=== PATIENT | male | born 1950 | race Caucasian/White ===

== ENCOUNTER 2023-11-08 07:20 | Observation (INO) ==
--- NOTE | 2023-09-29 13:11 | PAT Medication Instructions ---
Medication Instructions Date of Service September 29, 2023 Home Medications apixaban 5 mg tablet (Eliquis) 5 mg PO BID aspirin 81 mg tablet 81 mg PO DAILYBL atorvastatin 40 mg tablet 40 mg PO HS fluticasone propionate 50 mcg/actuation nasal spray,suspension 2 spray intranasal DAILY PRN prn levothyroxine 125 mcg tablet 125 mcg PO QAM metoprolol tartrate 25 mg tablet 25 mg PO BID multivitamin 1 tab PO QAM valsartan 160 mg-hydrochlorothiazide 12.5 mg tablet 1 tab PO QAM vitamin B complex 1 tab PO QAM ASK your prescriber and surgeon aspirin 81 mg tablet 81 mg PO DAILYBL apixaban 5 mg tablet (Eliquis) 5 mg PO BID (From anesthesia perspective, Apixaban/Eliquis needs to be stopped 72 hours before surgery. Please check if okay with doctor that prescribes this to you) DO NOT take the morning of surgery multivitamin 1 tab PO QAM valsartan 160 mg-hydrochlorothiazide 12.5 mg tablet 1 tab PO QAM vitamin B complex 1 tab PO QAM Take morning of surgery With a small sip of water, OTHERWISE NOTHING TO EAT OR DRINK AFTER MIDNIGHT: fluticasone propionate 50 mcg/actuation nasal spray,suspension 2 spray intranasal DAILY PRN prn (if needed) levothyroxine 125 mcg tablet 125 mcg PO QAM metoprolol tartrate 25 mg tablet 25 mg PO BID Take evening before surgery atorvastatin 40 mg tablet 40 mg PO HS fluticasone propionate 50 mcg/actuation nasal spray,suspension 2 spray intranasal DAILY PRN prn (if needed) metoprolol tartrate 25 mg tablet 25 mg PO BID Other Notes If you have any questions please call us at [phone] or [phone] or [phone] or [phone]
--- NOTE | 2023-10-07 13:15 | Anesthesiology Consultation ---
Date of Service October 07, 2023 Assessment & Plan (1) Encounter for pre-operative examination: - Infectious disease screening: Per assessment on 10/07/23: No known infectious disease contacts or current infectious disease symptoms. No noted recent Covid positive test result. - Outpatient joint assessment: Pt currently scheduled for inpatient pathway. If surgeon requests review for outpatient joint pathway, patient is not recommended candidate for outpatient joint program from anesthesia standpoint based upon available information. - Eliquis instructions: patient made aware that for neuraxial anesthesia, Eliquis needs to be held 72 hours prior to surgery. Patient voiced understanding/will check if okay with prescriber. - Awaiting upcoming Echo (ZACH Mishra, 10/10) + surgeon-ordered cardiology clearance (ANJU, appt 11/01). Chart Review Chart Review: Patient seen in Pre Admission Testing Teaching & Discussion Pre-Anesthesia Teaching/Discussion Notes: Instructed NPO after midnight before surgery,except medications with 15 cc of water. Medication instructions provided according to the PAT guidelines. History Surgery Operation Date: 11/08/23 09:15 Proposed Procedures p Right Total Knee Arthroplasty - Chester Cummings DO Height/Weight Height: 5 ft 10 in Weight: 123.1 kg Allergies Allergy/AdvReac Type Severity Reaction Status Date / Time No Known Allergies Allergy Unverified 09/28/23 15:35 Medications Home Medications Medication Instructions Recorded Confirmed Last Taken apixaban 5 mg tablet (Eliquis) 5 mg PO BID 09/28/23 09/28/23 Unknown aspirin 81 mg tablet 81 mg PO DAILYBL 09/28/23 09/28/23 Unknown atorvastatin 40 mg tablet 40 mg PO HS 09/28/23 09/28/23 Unknown fluticasone propionate 50 2 spray intranasal DAILY PRN prn 09/28/23 09/28/23 Unknown mcg/actuation nasal spray,suspension levothyroxine 125 mcg tablet 125 mcg PO QAM 09/28/23 09/28/23 Unknown metoprolol tartrate 25 mg tablet 25 mg PO BID 09/28/23 09/28/23 Unknown multivitamin 1 tab PO QAM 09/28/23 09/28/23 Unknown valsartan 160 1 tab PO QAM 09/28/23 09/28/23 Unknown mg-hydrochlorothiazide 12.5 mg tablet vitamin B complex 1 tab PO QAM 09/28/23 09/28/23 Unknown Past Medical History Medical History Atrial fibrillation Follows with ANJU/Eda MURRAY Taking Eliquis Echo scheduled 10/11/2023/ZACH Mishra Hyperlipidemia Hypertension Hypothyroidism Obesity Osteoarthritis Exercise / Class Metabolic Activity III < 4 Walking/Shop/Light housework Past Surgical History Surgical History History of cataract surgery bilateral History of cholecystectomy History of tonsillectomy History of umbilical hernia repair Hx of eye surgery left eye artery laser surgery Hx of knee surgery left knee cartilage removed Hx of right inguinal hernia repair Past Anesthesia History No Hx of Anesthesia Complications and No Family Hx of Anesthesia Complications History of PONV No Hx of PONV and No Hx of Motion Sickness Social History Smoking Status: Never smoker Do You Dip or Chew Tobacco: No Hx Alcohol Use: No Hx Substance Use: No substance use type: does not use Review of Systems + Stable KWON. Patient denies chest pain, shortness of breath, fever, chills, cough, wheezing, palpitations. Physical Exam Vital Signs BP 119/76 P 50 TEMP 97.9 SP02 98%RA RESP 18 Physical Full cervical extension range of motion. Full TMJ range of motion. TMD 3.5 finger breaths Mallampati Score 3 Dentition: intact Lungs: clear throughout to auscultation Cardiac: bradycardia, irregular rhythm, no murmurs noted Spine: normal Carotid arteries: negative bruit Extremities: no LE edema Lab Results Anesthesia Preop Results Results Anesthesia Widget: WBC 6.81 K/ul (4.8-10.8) 10/07/23 Hgb 15.0 g/dl (14.0-18.0) 10/07/23 Hct 43.6 % (42.0-52.0) 10/07/23 Plt 173 K/uL (130-400) 10/07/23 Na 140 mmol/L (136-145) 10/07/23 K 4.1 mmol/L (3.5-5.1) 10/07/23 Cl 107 mmol/L (98-107) 10/07/23 CO2 28 mmol/L (21-32) 10/07/23 BUN 14 mg/dl (6-23) 10/07/23 Creat 0.98 mg/dl (0.6-1.4) 10/07/23 Glucose Level 99 mg/dl (70-99(Fasting)) 10/07/23 PT 12.0 Seconds (9.0-12.0) 10/07/23 PTT 29 Seconds (21-31) 10/07/23 INR 1.1 (0.9-1.1) 10/07/23 HA1c 5.3 % (4.5-5.6) 10/07/23 Blood Type O Negative 10/07/23 Antibody Screen NEGATIVE 10/07/23 Testing Electrocardiogram Date: 10/07/23 A. fib with slow ventricular response at 49bpm.
--- NOTE | 2023-10-10 09:15 | History & Physical Report ---
Date of Service October 10, 2023 date of surgery: 11/08/23 Procedure: Right Total Knee Arthroplasty Surgeon: Chester Cummings, Assessment & Plan (1) Arthritis of right knee: Plan: Patient presents for evaluation of chronic right knee pain denies any specific i njuries or trauma. His pain is ongoing for many years now, states he did have a cortisone injection with no improvement. He has tried oral anti-inflammatories and Tylenol as well. 4 view right knee today shows advanced degenerative changes to his right knee greatest medial compartment and patellofemoral joint with joint space narrowing osteophyte formation subchondral sclerosis. We discussed further options at this point he like to proceed with surgical intervention. Plan to be right total knee arthroplasty, [facility] patient- matched total knee. He does take Eliquis for A-fib, would recommend cardiac clearance prior to the surgery. Will plan overnight stay at the hospital with discharge home with home health physical therapy. He otherwise has no other questions or concerns The risks and benefits have been discussed including, but not limited to, risk of infection, nerve injury, stiffness, loss of motion, failure to improve, etc. Reasonable outcomes and options of treatment were discussed. An explanation of appropriate alternatives to the procedure that may be advantageous were discussed and their risks and benefits, as well as the risks and benefits of not proceeding with treatment. I offered to answer any additional inquiries concerning the treatment involved. All the patient's questions were answered. The patient is agreeable, understanding of the treatment plan and alternatives, and wishes to proceed with the treatment plan. History of Present Illness Chief Complaint: Right knee pain Primary Care Provider: DOLORES BROTHERS Hector is a 72-year-old male who presented for preop evaluation prior to [facility] right total knee arthroplasty. He states he has a longstanding history of right knee pain which gradually worsened and is now affecting his daily activities including walking standing using stairs. He has had previous cortisone injection with no relief, he is unable to take anti-inflammatory secondary to Eliquis for A-fib. At this point time is failed conservative measures and wishes to proceed with a right total knee replacement Allergies Allergy/AdvReac Type Severity Reaction Status Date / Time No Known Allergies Allergy Unverified 09/28/23 15:35 Home Medications Medication Instructions Recorded Confirmed Type apixaban 5 mg tablet (Eliquis) 5 mg PO BID 09/28/23 09/28/23 History aspirin 81 mg tablet 81 mg PO DAILYBL 09/28/23 09/28/23 History atorvastatin 40 mg tablet 40 mg PO HS 09/28/23 09/28/23 History fluticasone propionate 50 2 spray intranasal DAILY PRN prn 09/28/23 09/28/23 History mcg/actuation nasal spray,suspension levothyroxine 125 mcg tablet 125 mcg PO QAM 09/28/23 09/28/23 History metoprolol tartrate 25 mg tablet 25 mg PO BID 09/28/23 09/28/23 History multivitamin 1 tab PO QAM 09/28/23 09/28/23 History valsartan 160 1 tab PO QAM 09/28/23 09/28/23 History mg-hydrochlorothiazide 12.5 mg tablet vitamin B complex 1 tab PO QAM 09/28/23 09/28/23 History Past Med/Surg History Medical History Obesity Osteoarthritis Hypothyroidism Atrial fibrillation Follows with ANJU/Eda MURRAY Taking Eliquis Echo scheduled 10/11/2023/[facility] Hyperlipidemia Hypertension Surgical History Hx of knee surgery left knee cartilage removed Hx of right inguinal hernia repair History of umbilical hernia repair History of cholecystectomy History of tonsillectomy Hx of eye surgery left eye artery laser surgery History of cataract surgery bilateral Social History Smoking Status: Never smoker Second Hand Exposure: No; Do You Dip or Chew Tobacco: No; Hx Alcohol Use: No Hx Substance Use: No Preferred Language: Kazakh Flat Finisher Required: No Beliefs That Will Affect Care: None Current Living Situation: Spouse Feels Safe at Home: Yes Assistive Devices: Cane, Glasses and Hearing Aid - Bilateral Review of Systems Review of Systems: All systems reviewed & are unremarkable except as noted in HPI & below Constitutional: no fever, no chills and no sweats Respiratory: no cough and no dyspnea Cardiovascular: no chest pain, no dyspnea and no orthopnea Gastrointestinal: no abdominal pain, no nausea and no vomiting Musculoskeletal: as per Subjective / HPI Physical Exam Physical Exam: HT: 5ft 10in WT: 123.1kg Constitutional: WD/WN, vitals as above no acute distress Respiratory: normal respiratory effort, lungs clear to auscultation no respiratory distress, no labored breathing and does not use accessory muscles Cardiovascular: Rate/Rhythm: + irregularly irregular Gastrointestinal (Abdomen): normal bowel sounds, soft, nontender, no hepatosplenomegaly Musculoskeletal: Knee: + knee abnormal to inspection (RIGHT KNEE: ), + effusion (+1 effusion), + limited ROM of knee (ROM 0/3/110), + knee ROM with crepitation, + joint line tenderness (medial joint line) and + Alejandro's sign positive; no deformity, no skin erythema, no ecchymosis, no valgus laxity, no varus laxity, anterior drawer test negative, Brooklyn's sign negative and pivot shift test negative Results & Data Results & Data Diagnostic Findings Right Knee X-ray: Right knee series showing advanced degenerative changes to the right knee, narrowing of the medial compartment and patello-femoral joint with patellar spurring noted, findings showing joint space narrowing of the medial compartment and patello-femoral joint, osteophyte formation and subchondral sclerosis noted. overall varus alignment. no acute bony pathology noted.
[~2023-11-08 07:20] MED LIST: BUPIVACAINE 0.25% PF 30 ML VIAL ONE; BUPIVACAINE 0.5 % 5 MG/1 ML PF 10ML VIAL ONE; DEXAMETHASONE SOD INJ 4 MG/ML VIAL ONE; EPINEPHrine INJ 1 MG/ML AMP ONE
--- NOTE | 2023-11-08 08:15 | History & Physical Bridge Note ---
Date of Service November 08, 2023 History & Physical Bridge Note I have examined the patient, reviewed the History & Physical and in the interval since the performance of the History & Physical I have noted the following changes of clinical significance: no changes noted
[2023-11-08] MEDS ORDERED: MIDAZOLAM HCL 1 MG/ML 2ML VIAL ONE (08:18)
[2023-11-08] MEDS ORDERED: fentaNYL citrate PF 100 MCG/2 ML VIAL ONE (08:18)
[2023-11-08] MEDS: GABAPENTIN 300 MG CAP PO SCH (08:29)
[2023-11-08] MEDS: ACETAMINOPHEN 500 MG TAB PO SCH ×2 (08:29→14:13)
[2023-11-08] MEDS: METOCLOPRAMIDE HCL 10 MG TABLET PO SCH (08:30)
[2023-11-08] MEDS: CeleBREX 200 MG CAP PO SCH (08:30)
[2023-11-08] MEDS: FAMOTIDINE 20 MG TAB PO SCH (08:30)
[2023-11-08] MEDS: dexAMETHasone 4 MG TAB PO SCH (08:30)
[2023-11-08] MEDS: LR 500ML BOLUS, THEN 15ML/HR IV SCH (08:30)
[2023-11-08] MEDS: oxyCODONE HCL 10 MG TABCR (OxyCONTIN) PO SCH (08:30)
[2023-11-08] MEDS ORDERED: ONDANSETRON INJ 2 MG/ML 2 ML VIAL ONE ×2 (08:31→10:54)
[2023-11-08] MEDS: LR 60ML/HR IV SCH (08:31)
[2023-11-08] MEDS: TRANEXAMIC ACID / 0.7% NACL 1000MG/100ML BAG IV ONE (08:33)
[2023-11-08] MEDS: TRANEXAMIC ACID / 0.7% NACL 1,000 MG/100 ML BAG IV ONE ×2 (09:25→13:10)
[2023-11-08] MEDS ORDERED: ONDANSETRON INJ 2 MG/ML 2 ML VIAL IV PRN ×2 (09:32→13:01)
[2023-11-08] MEDS ORDERED: fentaNYL citrate PF 100 MCG/2 ML VIAL IV PRN (09:32)
[2023-11-08] MEDS ORDERED: ePHEDrine sulfate 50 MG/ML AMP IV PRN (09:32)
[2023-11-08] MEDS ORDERED: ATROPINE SULFATE 0.1 MG/ML 10ML SYR IV PRN (09:32)
[2023-11-08] MEDS: ROPIV 0.5% 246mg, Ketorolac 30mg, EPINEPHrine 0.5mg in NSS INFIL SCH (10:22)
--- NOTE | 2023-11-08 10:46 | Operative Report ---
Post Operative Report Pre & Post Diagnosis Operation Date: 11/08/23 09:00 Pre-Op Diagnosis: Right Knee Osteoarthritis Post-Op Diagnosis: Right Knee Osteoarthritis I identified the patient and participated in the time-out.: Yes Procedure Operation Date: 11/08/23 09:00 Actual Procedures p Right Total Knee Arthroplasty(Right) Utilizing [facility] [place] patient-matched total knee arthroplasty sees size femur 6 right tibia 5 right poly 13 patella 32 syed- Chester Cummings DO Surgeon Chester Cummings DO Motion Picture Set Grip Rich TODD Estimated Blood Loss 5 Findings Consistent with Post-Op Diagnosis Patient presents with severe end-stage DJD of the right knee nonresponse to conservative management patient is eburnated [id number] marginal osteophytes subchondral sclerosis subchondral cystic changes with a large effusion Specimens Bone and cartilage Drains Medium bore Hemovac Anesthesia Type MAC Spinal Regional Complications none Disposition Accompanied Patient To Recovery: No Disposition: Recovery Room Indications Patient presents with severe end-stage DJD of the right knee nonresponse to conservative management occluding physical therapy anti-inflammatories relative rest activity modification corticosteroid injection viscosupplementation the above intraoperative findings were noted Description of Procedure After proper prepping and draping of the Right lower extremity anterior midline incision was made over the region of the extensor extensor mechanism after meticulous hemostasis was obtained and maintained in subcutaneous tissues a medial parapatellar incision was made The patella was subluxed lateralward the medial lateral gutter were cleaned from any hypertrophic synovitis and scar tissue of the distal femoral block was placed and the distal femoral osteotomy cut was made subsequently the chamfers anterior and posterior osteotomy cuts were made utilizing the 4-in-1 block the tibia was subsequently subluxed anteriorward medial and ateral meniscal remnants were excised in their entirety remnants of the anterior and posterior cruciate ligaments were excised in their entirety excellent exposure of the proximal tibia was obtained the tibial osteotomy guide was placed on the proximal tibial osteotomy cut was made once again the knee was irrigated with copious amounts of sterile saline solution the patella was subsequently everted lateralward thickened scar tissue around the patella was removed the patella was subsequently cut utilizing a freehand tech nique and was drilled prepared for final preparation and placement of patella socially flexion-extension gaps were checked and the equal and symmetric trials were placed to the appropriate femoral and tibial trials with poly-spacer being placed for equal flexion and extension gaps and full range of motion including extension to 0 and flexion to 140 the trial components after having been taken to recovery range of motion was subsequently removed meticulous hemostasis was obtained and maintained subsequently a knee block injection of joint cocktail including ropivacaine 0.5% 150 mg. Bupivacaine 0.5% epinephrine 1-200,030 mL's toradol 30 mg dexamethasone 4 mg ketamine 10 mg clonidine 100 micrograms normal saline solution 30 mg was infiltrated into the soft tissues of the posterior knee medial lateral gutters and periosteal synovium special attention was paid to protect neurovascular structures at all times subsequently trial components having been removed the knee was irrigated with sterile saline solution. debris was removed the proximal tibia was subsequently prepared and was made ready for the placement of the tibial component tibial component was also cemented and tamped into position the femoral component was subsequently placed and cemented in the position the patellar component was subsequently cemented in position because hemostasis once again obtained and maintained wound having been thoroughly irrigated with debridement and debridement lavage was performed as well as a medial parapatellar incision closed with #1 Vicryl in interrupted fashion subcutaneous was closed with #2 Vicryl skin was closed with skin clips. PA-C was necessary for prepping and drapping as well as wound closure of deep fascia Sub cutaneous tissue and skin and was necessary for the case. A sterile compressive dressing was placed patient was taken to recovery in stable condition of report dictated by Emiliano I attest to the content of the Intraoperative Record and any orders documented t herein. Any exceptions are noted below.Due to the complex nature of the procedure, the entire surgery was performed with the operational assistance ofPEYTON Wong. The orthodontist assistant, under direct supervision, was involved in the actual performance of all aspects of the surgical procedure including hemostasis, tissue retraction and incision, instrument management, patient positioning, and wound closure. I attest to the content of the Intraoperative Record and any orders documented therein. Any exceptions are noted below.
[2023-11-08] MEDS ORDERED: PHENYLEPHRINE 100MCG/ML 10ML SYR IV ONE (10:56)
[2023-11-08] MEDS: PROMETHAZINE HCL INJ 25 MG/ML 1 ML VIAL ONE (11:59)
[2023-11-08] MEDS: PROMETHAZINE HCL 6.25 MG in SODIUM CHLORIDE 0.9% 50 ML IV STA (11:59)
[2023-11-08] MEDS ORDERED: FLUTICASONE PROPIONATE NA SPR 16 GM BTL NAE PRN (13:01)
[2023-11-08] MEDS ORDERED: MAGNESIUM HYDROXIDE SUSP 30 ML UDC PO PRN (13:01)
[2023-11-08] MEDS ORDERED: NALOXONE HCL 0.4 MG/1 ML VIAL/CARP IV PRN (13:01)
[2023-11-08] MEDS ORDERED: HYDROmorphone INJ 1 MG/ML SYRINGE IV PRN (13:01)
[2023-11-08] MEDS ORDERED: METOCLOPRAMIDE HCL INJ 5 MG/ML 2 ML VIAL IV PRN (13:01)
[2023-11-08] MEDS ORDERED: bisacodyL 10 MG SUPP PR PRN (13:01)
[2023-11-08] MEDS ORDERED: diphenhydrAMINE Capsule 25 MG CAP PO PRN (13:01)
[2023-11-08] MEDS ORDERED: oxyCODONE HCL IR 5 MG TAB (IMMEDIATE RELEASE) PO PRN (13:01)
[2023-11-08] MEDS: ORTHO JOINT ANESTHETIC ONE (13:05)
[2023-11-08] MEDS: ceFAZolin 3000MG 3,000 MG/72.5 ML BAG IV SCH (13:10)
--- NOTE | 2023-11-08 13:10 | XRay Report ---
XR knee RT 1 or 2V routine HISTORY: 73 years-old Male Surgical Post Op right knee arthroplasty COMPARISON: None TECHNIQUE: 2 views of the right knee FINDINGS: Total joint arthroplasty with patellar resurfacing. Expected postoperative soft tissue swelling with deep tissue air and surgical drainage catheter. No acute fracture or unexpected opaque foreign body. IMPRESSION: Total joint arthroplasty with expected postoperative changes. ACT 112: Negative or not required by law. The above report was generated using voice recognition software. It may contain grammatical, syntax o r spelling errors. Electronically signed by: James Li M.D. 11/08/2023 1:09 PM
[2023-11-08] MEDS: SODIUM CHLORIDE 0.9% 1,000 ML IV SCH (13:12)
--- NOTE | 2023-11-08 14:55 | Hospitalist Consultation ---
Date of Consultation November 08, 2023 Assessment & Plan (1) S/P right knee surgery: Right TKA with Dr. Cummings on 11/07 Perioperative antibiotics, pain management, fluid replacement, and DVT PPx per the primary team Postop right knee x-ray revealed expected postoperative changes PT/OT consulted Agree with a.m. CBC, BMP, we will follow (2) Bradycardia: This is his normal. HR in 40s in setting of sheri collins on metoprolol in cardiology office and they wish to continue his metoprolol perioperatively despite his low HR Continue metoprolol, will reduce parameters to hold if HR less than 45 bpm, or SBP less than 90 (3) Atrial fibrillation: Restart Eliquir when ok from surgical perspective Continue metoprolol as above with hold parameters (4) Hypothyroidism: Continue levothyroxine (5) Hypertension: Will hold valsartan/HCTZ POD#1 pending serial BP measurements, restart as BP allows (6) Hyperlipidemia: Continue atorvastatin (7) Arthritis of right knee: Plan Agree with medical decision making: Disposition: MedSurg Regular diet VTE PPx: Teds/SCDs Thank you for allowing us to participate in the care of this patient; please reach out with any questions or concerns. We will continue to follow. Supervising Physician Co-Signing Physician Notes I personally saw and examined the patient. I independently reviewed the labs, EKG, imaging, problem list, medication list, past medical history and family history. I verified all longoria points and agree with Houston Hutchinson PA-C with the following exceptions and/or additions: 73 year old POD#0 right TKA, EBL 5ml. No current concerns or questions from the patient O/E HS irregular rhythm, decreased rate, no murmurs, Chest CTAB, Abdo SNT A/P VTE / Pain / bowel management by primary orthopedic team Sheri collins with slow ventricular response - appears to be his normal and known to his instructional materials director. He does describe poor exercise tolerance and he doesn't clearly need the metoprolol but since his instructional materials director wants this continued and is aware of the low HR will adjust hold parameters HTN - hold antihypertensives other than metoprolol pending serial BP overnight, restart as able per BP History of Present Illness Reason for Consultation: Medical management Requesting Physician: Chester Cummings DO Attending Physician: Chester J Cummings, DO History of Present Illness Hector is a 73-year-old male with PMH of HTN, hypothyroidism, HLD, and atrial fibrillation (on apixaban). He presented for a right total knee arthroplasty on 11/[address] Chester Cummings. Per review of operative report, EBL was listed as 5 cc, MAC spinal regional anesthesia was used, and there were no reported intraoperative complications. Per review of patient vitals, he has been bradycardic in the 39-50 bpm range; vitals otherwise stable. At time of consult, patient endorses 6/10 dull aching pain in his right knee. H e reports that the pain comes and goes intermittently, but reports no stabbing or burning pain. No radiation down into the foot, or up the leg towards the back. No numbness or tingling. Patient has no new complaints at this time. He notes that he did have 1 episode of nausea and vomiting in the PACU, but this nausea has resolved. He has been eating and drinking okay since the procedure (tolerating water, and had mac & cheese and a fruit bowl for lunch). He has not tried to get up to go to the bathroom yet. Patient's is at the bedside, and reports that he is usually bradycardic. Patient took metoprolol, levothyroxine, and his aspirin this morning; no other medications. He denies any recent change in medications. ROS: Patient endorses dull right knee pain, nausea, and 1 episode of vomiting. Patient denies fever, chills, sweating, lightheadedness, chest pain, chest palpitations, pleuritic CP, SOB, abdominal pain, changes in urinary or bowel habits, or numbness/tingling in the lower extremities bilaterally. Allergies Allergy/AdvReac Type Severity Reaction Status Date / Time No Known Allergies Allergy Verified 11/08/23 07:59 Home Medications Medication Instructions Recorded Confirmed Type apixaban 5 mg tablet (Eliquis) 5 mg PO BID 09/28/23 11/08/23 History aspirin 81 mg tablet 81 mg PO DAILYBL 09/28/23 11/08/23 History atorvastatin 40 mg tablet 40 mg PO HS 09/28/23 11/08/23 History fluticasone propionate 50 2 spray intranasal DAILY PRN prn 09/28/23 11/08/23 History mcg/actuation nasal spray,suspension levothyroxine 125 mcg tablet 125 mcg PO QAM 09/28/23 11/08/23 History metoprolol tartrate 25 mg tablet 25 mg PO BID 09/28/23 11/08/23 History multivitamin 1 tab PO QAM 09/28/23 11/08/23 History valsartan 160 1 tab PO QAM 09/28/23 11/08/23 History mg-hydrochlorothiazide 12.5 mg tablet vitamin B complex 1 tab PO QAM 09/28/23 11/08/23 History acetaminophen 500 mg tablet 1,000 mg (2 x 500 mg) PO Q8 pain 11/08/23 Rx 21 days #126 tabs cefadroxil 500 mg capsule 500 mg PO BID 14 days #28 caps 11/08/23 Rx docusate sodium 100 mg capsule 100 mg PO BID #20 caps 11/08/23 Rx oxycodone 5 mg tablet 5 - 10 mg (1 - 2 x 5 mg) PO Q6H 11/08/23 Rx PRN pain #30 tabs Patient History Medical History (Updated 11/08/23 @ 14:53 by Houston Hutchinson PA-C) Obesity Osteoarthritis Hypothyroidism Atrial fibrillation Follows with ANJU/Eda MURRAY Taking Eliquis Echo scheduled 10/11/2023/[facility] Hyperlipidemia Hypertension Surgical History (Updated 11/08/23 @ 19:59 by Rich Gary PA-C) Hx of knee surgery left knee cartilage removed Hx of right inguinal hernia repair History of umbilical hernia repair History of cholecystectomy History of tonsillectomy Hx of eye surgery left eye artery laser surgery History of cataract surgery bilateral Social History Smoking Status: Never smoker Second Hand Exposure: No; Do You Dip or Chew Tobacco: No; Tobacco Cessation Education Requested by Patient: No Hx Alcohol Use: No Hx Substance Use: No Preferred Language: [place]an Communication Ability: Effective Water Softener Installer Required: No Beliefs That Will Affect Care: None Current Living Situation: Spouse Other Information That Helps Us Care for You: No Feels Safe at Home: Yes Safety Concerns: Feels Safe At This Time Assistive Devices: Cane and Walker Review of Systems Review of Systems: See HPI above Physical Exam Physical Exam: General: no acute distress; pleasant affect; non-toxic appearing; well- nourished; cooperative; 97% SpO2 on RA HEENT: normocephalic, atraumatic; no scleral icterus; PERRLA; moist mucus membrane; vision intact; hard of hearing Neck: supple; no lymphadenopathy; trachea midline Skin: warm, dry without signs of tenting; no cyanosis; no rashes, bruising, lesions, or erythema noted CV: chest wall NTP; RR, around 50 bpm; S1/S2 normal; no murmurs/rubs/gallops; pulses intact and symmetric at radial, DP, and PT Lungs: no acute respiratory distress; symmetrical chest wall expansion; clear breath sounds across all lung beebe w/o adventitious sounds; no wheezing ABD: Soft, NTP; BS present; no rebound/guarding; moderate distention secondary to body habitus MSK: no tics or fasciculations; no edema noted in the LEs b/l, nonerythematous (SCDs/teds in place); patient demonstrates ability to wiggle toes bilaterally; patient is able to lift right leg off the bed without pain; drain in place Neuro: A&Ox3; normal mood and affect; slightly lethargic/dazed; fluent speech; patient endorses intact, symmetric sensation in the lower extremities bi laterally assessed via light touch at the toes Results & Data Results & Data Vital Signs (Past 12 Hours) Vital Signs Temp Pulse Pulse Resp BP Pulse Ox O2 Del Method 11/08/23 14:04 36.4 C L 47 L 17 110/70 98 Room Air 11/08/23 13:30 49 L 16 111/71 98 Room Air 11/08/23 13:00 36.4 C L 40 L 17 123/63 96 Room Air 11/08/23 12:40 40 L 16 110/54 L 97 Room Air 11/08/23 12:30 36.2 C L 39 L 16 105/61 97 Room Air 11/08/23 12:20 39 L 12 110/65 98 Room Air 11/08/23 12:10 45 L 15 102/84 96 Room Air 11/08/23 12:00 40 L 15 110/62 96 Room Air 11/08/23 11:50 45 L 18 109/59 L 96 Room Air 11/08/23 11:40 49 L 12 98/65 L 97 Room Air 11/08/23 11:30 42 L 16 88/59 L 95 Room Air 11/08/23 11:20 40 L 16 92/63 L 94 Room Air 11/08/23 11:12 36.0 C L 44 L 16 97/54 L 94 Room Air 11/08/23 08:00 36.7 C 48 L 20 120/80 99 Room Air Diagnostic Findings Knee X-Ray 11/08/23 11:15 XR knee RT 1 or 2V routine HISTORY: 73 years-old Male Surgical Post Op right knee arthroplasty COMPARISON: None TECHNIQUE: 2 views of the right knee FINDINGS: Total joint arthroplasty with patellar resurfacing. Expected postoperative soft tissue swelling with deep tissue air and surgical drainage catheter. No acute fracture or unexpected opaque foreign body. IMPRESSION: Total joint arthroplasty with expected postoperative changes. ACT 112: Negative or not required by law. The above report was generated using voice recognition software. It may contain grammatical, syntax or spelling errors. Electronically signed by: James Li M.D. 11/08/2023 1:09 PM PG Care Time/CCT Total # of Minutes Spent Total Time Spent with Patient: Total time spent is greater than 50% in coordination of care (as documented) at patient's floor/unit and/or counseling patient: [place] [address] IN/OBS CONSULT LVL 4,60M Patient Type New Medical Decision Making Low Complexity Diagnoses S/P right knee surgery Z98.890 Bradycardia R00.1 Atrial fibrillation I48.91 Hypothyroidism E03.9 Hypertension I10 Hyperlipidemia E78.5 Arthritis of right knee M17.11
[2023-11-08] MEDS: ceFAZolin 2000MG 2,000 MG/15 ML SYR IV SCH (17:11)
[2023-11-08] MEDS: DOCUSATE SODIUM 100 MG CAP PO SCH (19:41)
[2023-11-08] MEDS: SENNA 8.6 MG TAB PO SCH (19:41)
[2023-11-08] MEDS: METOPROLOL TARTRATE 25 MG TAB PO SCH (19:42)
[2023-11-08] MEDS: ATORVASTATIN 40 MG TAB PO SCH (19:42)
[2023-11-09] MEDS: LEVOTHYROXINE SODIUM 125 MCG TABLET PO SCH (05:29)
--- NOTE | 2023-11-09 07:09 | Orthopedic Progress Note ---
Date of Service November 09, 2023 Assessment & Plan (1) History of total right knee replacement: Plan: POD #1 s/p Right TKA pt/ot dvt proph with DEANGELO/SCD/resume Eliquis patient with episodes of bradycardia, Med consult placed. recommend hold on valsartan/HCTZ, Continue metoprolol, with parameters to hold if HR less than 45 bpm, or SBP less than 90 plan for d/c home with HHPT when stable. will wait until after med recommendations Admission and Anticipated Discharge Date Admission Date: November 08, 2023 Subjective POD #1 s/p Right TKA Review of Systems Constitutional: no fever, no chills and no sweats Respiratory: no cough and no dyspnea Cardiovascular: no chest pain and no dyspnea Gastrointestinal: no abdominal pain, no nausea and no vomiting Physical Exam Physical Exam: Vital Signs Temp 36.6 C 11/09/23 06:56 Pulse 50 L 11/09/23 06:56 Resp 16 11/09/23 06:56 BP 120/74 11/09/23 06:56 Pulse Ox 98 11/09/23 06:56 O2 Del Method Room Air 11/09/23 06:56 Intake & Output 11/08/23 11/09/23 11/09/23 18:59 06:59 18:59 Intake Total 2950.25 / 3950.25 1000 / 3950.25 Output Total 80 / 1350 1270 / 1350 Balance 2870.25 / 2600.25 -270 / 2600.25 Weight 123.6 kg Intake: IV 150.25 / 1150.25 1000 / 1150.25 Lactated Ringe r's 1,000 ml @ 15 0 / 0 mls/hr IV .Q24 H VIC Rx#: [id number] Promethazine H Cl 6.25 mg In 50.25 / 50.25 Sodium Chlorid e 0.9% 50 ml @ 201 mls/hr IV NOW STA Rx#: [id number] Sodium Chlorid e 0.9% 1,000 ml @ 1000 / 1000 100 mls/hr IV .Q10H VIC Rx#: [id number] Tranexamic Aci d / 0.7% NaCl 1, 100 / 100 000 mg In 100 ml @ 600 mls/hr IV PREOP@0825 ONE Rx#:[id number] IV Perioperative 2600 / 2600 Oral 200 / 200 Output: Urine 1100 / 1100 Estimated Blood Loss Drain Output 70 / 240 170 / 240 Right Knee Hem ovac #1 70 / 240 170 / 240 Other: Weight Measureme nt Method Standing Scale Musculoskeletal: Right Leg: NVDI, calf SNT, negative rome sign. DP palpable, able to wiggle toes/ankle movement without difficulty. dressing clean dry and intact. Results & Data Vital Signs (Past 12 Hours) Vital Signs Temp Pulse Resp BP Pulse Ox O2 Del Method 11/09/23 06:56 36.6 C 50 L 16 120/74 98 Room Air 11/09/23 03:02 36.7 C 47 L 18 102/60 98 Room Air 11/08/23 22:42 36.4 C L 44 L 14 127/69 98 Room Air 11/08/23 19:31 36.6 C 44 L 18 109/64 96 Room Air
[2023-11-09 08:20] LABS: Hematocrit (blood only) 35.6 % (42.0-52.0); Hemoglobin 12.6 g/dl (14.0-18.0); Mean Corpuscular Hemoglobin 32.1 pg (25.0-34.0); Mean Corpuscular Hgb Conc 35.4 g/dL (32.0-36.0); Mean Corpuscular Volume 90.8 fL (80.0-100.0); Mean Platelet Volume 10.1 fL (9.4-12.4); Platelet Count 160 K/uL (130-400); RDW Coefficient of Variation 12.9 % (11.5-14.5); RDW Standard Deviation 42.3 fL (36.4-46.3); Red Blood Count 3.92 M/uL (4.70-6.10); White Blood Count 15.87 K/ul (4.8-10.8)
[2023-11-09] MEDS: VITAMIN B COMPLEX TAB PO SCH (08:37)
[2023-11-09] MEDS: MULTIVITAMIN TAB PO SCH (08:37)
[2023-11-09] MEDS: ASPIRIN 81 MG ECTAB PO SCH (08:37)
[2023-11-09] MEDS: APIXABAN 5 MG TABLET PO SCH (08:38)
[2023-11-09 08:43] LABS: BUN Creatinine Ratio 20.6 (10-20); Calcium 9.1 mg/dl (8.6-10.3); Creatinine Clr Calc Pharmacy 81.1 ml/min; Est GFR (African American) 79.4 ml/min; Est GFR (Non-African American) 68.5 ml/min; Potassium 4.2 mmol/L (3.5-5.1)
[2023-11-09] MEDS ORDERED: VALSARTAN/HCTZ 160/12.5MG TAB PO SCH (09:00)
--- NOTE | 2023-11-09 10:21 | Hospitalist Progress Note ---
Date of Service November 09, 2023 Assessment & Plan (1) S/P right knee surgery: Plan: Right TKA with Dr. Cummings on 11/07 Perioperative antibiotics, pain management, fluid replacement, and DVT PPx per the primary team PT/OT consulted - home with home health PT hgb 12.6, preoperatively 15.0 - suspect acute blood loss anemia vs dilutional (2) Bradycardia: Plan: This is his normal. HR in 40s in setting of a. fib on metoprolol in cardiology office for preoperative clearance. Discussion with and patient at bedside. The metoprolol was started by his PCP for high blood pressure and not for his afib. Given his baseline low, he is low risk for afib with RVR, but high risk for orthostatic HTN, syncope. Discussed with patient and - and they do not have a pulse ox at home. Given his current state of recovery and decreased activity, will hold metoprolol until follow up with PCP next week. Defer to them whether a dose reduction would be appropiate if wanting to use for afib or a different medication can be used for hypertension. (3) Atrial fibrillation: Plan: Restart Eliquis when ok from surgical perspective hold metoprolol as above (4) Hypothyroidism: Plan: Continue levothyroxine (5) Hypertension: Plan: Resume valsartan/HCTZ 11/09 (6) Hyperlipidemia: Plan: Continue atorvastatin (7) Arthritis of right knee: Plan Disposition: medically stable, will need PCP follow up next week. Thank you for allowing us to participate in the care of this patient; please reach out with any questions or concerns. We will continue to follow. Admission and Anticipated Discharge Date Admission Date: November 08, 2023 Subjective Patient seen sitting up in the chair, present at bedside. Overall feeling well from the knee replacement perspective, has some tightness in the thigh muscles, that improves with stretching. Ate breakfast, has had a bowel movement. Reports his normal HR is low 50s, sometimes gets up to the 60s. States that his PCP prescribed the metoprolol for high BP, not the molder bench. He has never felt light headeded or dizzy. Does not feel this way when he was just working with therapy. Review of Systems Review of Systems: All systems reviewed & are unremarkable except as noted in Subjective Physical Exam Physical Exam: General: sitting up in the chair, appears well NAD, VS as above Resp: normal respiratory effort, lungs clear to auscultation CV: bradycardic and irregular, no murmur, Abd: normal bowel sounds, non tender, no hepatosplenomegaly Extremities: simba bandage over right knee Neuro: A&O x3, Results & Data Results & Data Vital Signs (Past 12 Hours) Vital Signs Temp Pulse Resp BP Pulse Ox O2 Del Method 11/09/23 08:00 Room Air 11/09/23 06:56 36.6 C 50 L 16 120/74 98 Room Air 11/09/23 03:02 36.7 C 47 L 18 102/60 98 Room Air 11/08/23 22:42 36.4 C L 44 L 14 127/69 98 Room Air Laboratory Results CBC and chemistry reviewed PG Care Time/CCT Total # of Minutes Spent Total Time Spent with Patient: Total time spent is greater than 50% in coordination of care (as documented) at patient's floor/unit and/or counseling patient: Coding Level of Care Code 72745 SUB INP/OBS CARE 2/35MIN Diagnoses S/P right knee surgery Z98.890 Bradycardia R00.1 Atrial fibrillation I48.91 Hypothyroidism E03.9 Hypertension I10 Hyperlipidemia E78.5 Arthritis of right knee M17.11
--- NOTE | 2023-11-09 13:34 | Discharge Summary ---
Date of Service date of discharge: November 09, 2023 date of admission 11/08/23 Admission HPI Per Admitting Provider Hector is a 72-year-old male who presented for preop evaluation prior to upcoming right total knee arthroplasty. He states he has a longstanding history of right knee pain which gradually worsened and is now affecting his daily activities including walking standing using stairs. He has had previous cortisone injection with no relief, he is unable to take anti-inflammatory secondary to Eliquis for A-fib. At this point time is failed conservative measures and wishes to proceed with a right total knee replacement Principal Diagnosis right knee arthritis Discharge Exam Musculoskeletal right knee: NVDI, calf SNT, negative rome sign. DP palpable, able to wiggle toes/ankle movement without difficulty. JANELLE dressing clean dry and intact. expected post-operative bruising noted. Discharge Data Allergies Allergy/AdvReac Type Severity Reaction Status Date / Time No Known Allergies Allergy Verified 11/08/23 07:59 Consultations 11/08/23 12:55 Consult Hospitalist Routine Procedures Performed Operation Date: 11/08/23 09:00 Actual Procedures p Right Total Knee Arthroplasty(Right) - Chester Aranda DO Ordered Studies 11/08/23 05:00 US - OR guided needle placemen Routine Hospital Course (1) History of total right knee replacement: POD #1 s/p Right TKA pt/ot dvt proph with DEANGELO/SCD/resume Eliquis patient with episodes of bradycardia, Med consult placed. recommend hold on valsartan/HCTZ, Continue metoprolol, with parameters to hold if HR less than 45 bpm, or SBP less than 90 plan for d/c home with HHPT when stable. will wait until after med recommendations Total Time Total Time Spent Total Time Spent (In Minutes): 20 Discharge Plan Discharge Items Patient Disposition: Home - Home Health Services Reason For Visit: Right Knee Osteoarthritis Discharge Diagnosis: right total knee replacement Activity: Per Instructions section Weightbearing Comment: WBAT with walker Non-emergency contact: Surgeon Call non-emergency contact if: you have any medication questions, your temperature is above 101, your wound has increased redness, your wound has increased drainage and your wound pain has increased Follow-up/Referrals: Chester Delvalle, D.O. [Primary Care Provider] - (Schedule appointment within one week to discuss Blood pressure medications ) PCP,NO [Physician] - Diet: Regular Addtl Attending Provider Instructions: ACTIVITY RECOMMENDATIONS: SELF CARE INSTRUCTIONS AFTER TOTAL KNEE REPLACEMENT A. You may need to continue a physical therapy program after discharge from the hospital. There are several options available to you. Your doctor will assist you in selecting the best one for you. 1. An out-patient facility 2 to 3 times a week for therapy or home therapy. 2. Continue working on all exercises taught to you in the hospital. Your goals should be to increase bending of your knee to 90 degrees and beyond and to fully straighten your knee. B. You may progress at your own pace from walking with a walker or crutches to a cane; then to no assistive devices. C. Make walking a part of your daily routine. Be up as much as comfortable with rest periods throughout the day. Rest with leg elevation is very important. Use the ice wrap frequently for the first 3-4 weeks. D. There are no restrictions on activities. You may ride in a car, shop, par ticipate in drug safety assistant and all social activities. E. Wear the long elastic stockings (DEANGELO hose) 20 hours a day for 2 weeks after surgery. They can be removed several times a day for laundering and for a bath. F. You may shower, no tub baths until cleared by your doctor. SPECIAL CARE INSTRUCTIONS: VERY IMPORTANT TO READ AND REVIEW A. There are a few signs you need to watch for after you are home. Call [facility] if you notice any of the followin. Increased severe knee pain. Some pain is expected especially when you exercise. 2. Increased swelling in your leg or knee; pain or swelling of the calf muscle in either lower leg. 3. Any fluid drainage from the incision. 4. Shortness of breath or chest pain. B. Please call [facility] at if you have any concerns or questions about your operation or recovery. The doctor or his nurse will return your call promptly. C. You must take antibiotics before dental work, bladder, bowel or other surgery. Your doctor will provide you with a permanent care to carry describing this precaution. IMPORTANT: * REMEMBER TO TAKE ASPIRIN, 81 MG, TWICE DAILY FOR 4 WEEKS UNLESS OTHERWISE DIRECTED. THIS IS YOUR BLOOD THINNER. * HIGH RISK PATIENTS MAY BE PRESCRIBED A STRONGER BLOOD THINNER. THIS WILL BE PROVIDED AT DISCHARGE. * CALL IF INCREASED PAIN, REDNESS, DRAINAGE OR FEVER GREATER THAT 101. * WEAR DEANGELO HOSE 20 HOURS PER DAY FOR 2 WEEKS. DRESSING INSTRUCTIONS * JANELLE Dressing- This is a large suction dressing covering your incision. This will help pull any excess drainage from the wound and allow your incision to heal properly. You may shower with this if you can keep the unit outside of the shower. If any bleeding or leakage is noted please call your doctor's office. This will remain on your incision for 7 days and then should be removed. This can be done yourself or by the home nursing staff if applicable. The entire unit is disposable once removed. Once removed, keep incision clean and dry. If redness or drainage is noted, please call your surgeon. ONCE JANELLE IS REMOVED, FOLLOW THESE INSTRUCTIONS: DERMABOND Prineo- This is a mesh tape dressing that is covered with glue. It should remain in place until the incision is properly healed, usually 10-14 days. This dressing is designed to naturally slough off. You may trim the excess mesh tape as it peels off. Incision may be briefly wet in a shower. Dry immediately by blotting with a clean, dry towel. Do not bath or swim until instructed by your doctor. Do not scratch, rub, or pick at the dressing. Do not apply any topical ointments or lotions until dressing is completely removed and/or instructed by your doctor. There may be a small piece of suture material at one end of your incision. Do not pull or trim this. If it is bothersome or catching on clothing, you may cover it with a band-aid. IF INCISION IS LEAKING THROUGH DRESSING, CALL THE OFFICE . FOLLOW UP VISIT: If appointment is not already scheduled: Please call [facility] to make a follow-up appointment for 2 weeks after your surgery at . Addtl Drilling Machine Operator Provider Instructions: Hospital Medicine: - As we discussed we are holding your metoprolol until you are seen by your PCP next week. With concerns of low blood pressure and low heart rate. You may need a dose reduction if they are going to use this for afib or a different medication for your high blood pressure - you can resume your valsartan-HCTZ on 11/09 - make sure you are staying hydrated and changing positions slowly (from lying to sitting and sitting to standing, etc). Stand-Alone Forms: My [facility] Medications and DC Order Prescriptions: New acetaminophen 500 mg tablet 1,000 mg PO Q8 21 Days Qty: 126 0RF cefadroxil 500 mg capsule 500 mg PO BID 14 Days Qty: 28 0RF docusate sodium 100 mg Capsule 100 mg PO BID Qty: 20 0RF oxycodone 5 mg tablet 5 - 10 mg PO Q6H PRN (Reason: pain) Qty: 30 0RF Rx Instructions: ongoing therapy, supervising dr ever aranda. max 6 tabs in 24 hours. date of surgery 11/08/23 Continued multivitamin Tablet 1 tab PO QAM atorvastatin 40 mg Tablet 40 mg PO HS valsartan-hydrochlorothiazide 160-12.5 mg Tablet 1 tab PO QAM levothyroxine 125 mcg Tablet 125 mcg PO QAM vitamin B complex Tablet 1 tab PO QAM aspirin 81 mg Tablet 81 mg PO DAILYBL fluticasone propionate 50 mcg/actuation [place],Suspension 2 spray INTRANASAL DAILY PRN (Reason: prn) Rx Instructions: administer into each nostril Eliquis 5 mg Tablet 5 mg PO BID Held metoprolol tartrate 25 mg Tablet 25 mg PO BID Hold Instructions: Resume on 11/16/23. until discussed with PCP Admission Data Admit Date/Time: 11/08/23 11:15 Attending Provider: Chester Aranda Admit Provider: Chester Aranda Primary Care Provider: Chester Delvalle Other Providers: Timothy Tyson Other Interventions: Discharge Summary Assessment (RN) Last Done: 11/09/23 11:07
--- NOTE | 2023-11-10 22:54 | Electrocardiogram Report ---
Test Reason : Blood Pressure : / mmHG Vent. Rate : 042 BPM Atrial Rate : 052 BPM P-R Int : 000 ms QRS Dur : 100 ms QT Int : 470 ms P-R-T Axes : 000 -11 021 degrees QTc Int : 392 ms Atrial fibrillation with slow ventricular response Abnormal ECG When compared with ECG of 07-OCT-2023 13:36, Questionable change in QRS axis Confirmed by Lazaro Garcia ([id number]) on 11/10/2023 10:54:14 PM Referred By: Chester Cummings Confirmed By:Lazaro Garcia
== END 2023-11-09 11:46 | disposition home health service (06) ==
LOC: ASU 07:20 → 3N 07:20